=== PATIENT | female | born 1990 | race African-American/Black ===

== ENCOUNTER 2019-02-16 02:19 | Emergency (ER) | payer SELFPAY ==
[2019-02-16] MEDS ORDERED: Lorazepam 1 MG TAB ONE (03:52)
[2019-02-16 04:27] LABS: Bilirubin Negative (Negative); Blood, Urine Negative (Negative); Clarity CLEAR (Clear); Glucose, Urine (Dipstick) Negative (Negative); Leukocyte Trace (Negative); Nitrite Negative (Negative); Protein, Urine (Dipstick) Negative (Neg-Trace); Specific Gravity, Urine 1.012 (1.002-1.036); Urobilinogen 0.2 mg/dL (0.2-1.0); pH, Urine 5.5 (5.0-9.0)
[2019-02-16 04:28] LABS: Pregnancy Test - Urine (BHCG) Negative (Negative); Pregu Control Background? CLEAR/WHITE (CLR/WHITE); Pregu Control Bar Appear? YES (CONTROL BAR); Specific Gravity 1.012 (1.002-1.036)
[2019-02-16 04:30] LABS: Bacteria/HPF Rare-Few HPF (None Seen); Hyaline Casts/LPF 0-3 HYALINE CAST LPF (0-3 Hyaline); RBC/HPF 0-3 HPF (0-3); Squamous Epithelial 0-3 HPF (0-3)
[2019-02-16 04:37] LABS: Amphetamine Detected (NotDetected); Barbiturates Screen Not Detected (NotDetected); Benzodiazepine Screen Not Detected (NotDetected); Cocaine Metabolite Screen Not Detected (NotDetected); Medtox Control Line Valid? VALID (VALID); Medtox Reader # READER 4; Methadone Not Detected (NotDetected); Methamphetamine Detected (NotDetected); Opiate Screen Not Detected (NotDetected); Oxycodone Screen Not Detected (NotDetected); Phencyclidine (PCP) Not Detected (NotDetected); THC/Cannabinoid Screen Not Detected (NotDetected); Tricyclic Screen Not Detected (NotDetected)
== END 2019-02-16 05:33 ==
LOC: ERS 02:19
DX: F30.9 Manic episode, unspecified (principal); F41.9 Anxiety disorder, unspecified
CPT/HCPCS: 80306; 81003; 81015; 81025; 99283

== ENCOUNTER 2024-04-15 16:20 | Emergency (ER) | payer SELFPAY ==
[2024-04-15] MEDS ORDERED: Lorazepam 2 MG/ML VIAL ONE ×2 (16:38→21:02)
[2024-04-15 17:07] LABS: Anion Gap 16 mmol/L (10-20); BUN (Urea Nitrogen) 33 mg/dL (7.0-18.7); Calc. Creatinine Clearance 0 mL/min (70-130); Calcium 8.6 mg/dL (7.8-10.44); Carbon Dioxide 17 mmol/L (22-29); Chloride 108 mmol/L (98-107); Estimated GFR 41; Glucose 69 mg/dL (70-105); Sodium 138 mmol/L (136-145)
[2024-04-15 17:10] LABS: Acetaminophen Less than 10 mcg/mL (10.0-30.0); Alcohol 39.2 mg/dL (Less than 10); Salicylate Less than 8.0 mg/dL (15.0-30.0)
[2024-04-16] MEDS ORDERED: D5 1/2 NS w/20 mEq KCL 1,000 ML ONE (01:58)
[2024-04-16 07:18] LABS: Amphetamine Detected (NotDetected); Barbiturates Screen Not Detected (NotDetected); Benzodiazepine Screen Detected (NotDetected); Cocaine Metabolite Screen Not Detected (NotDetected); Methadone Not Detected (NotDetected); Methamphetamine Detected (NotDetected); Opiate Screen Not Detected (NotDetected); Oxycodone Screen Not Detected (NotDetected); Phencyclidine (PCP) Not Detected (NotDetected); THC/Cannabinoid Screen Not Detected (NotDetected); Tricyclic Screen Not Detected (NotDetected)
== END 2024-04-16 08:42 | disposition short-term general hospital (02) ==
LOC: ERS 16:20
DX: T76.21XA Adult sexual abuse, suspected, initial encounter (principal)
CPT/HCPCS: 36415; 36416; 70450; 80048; 80306; 80307; 93005; 96374; 96375; 96376; J2060; J3480